=== PATIENT | male | born 1940 | race Caucasian/White ===

== ENCOUNTER → 2016-11-05 | Outpatient (CLI) | payer MEDICARE ==
[~2016-11-05] MED LIST: APIX5TAB PO; ATOR10TA9 PO; CALC625T23 PO; ENAL2.5T PO; HYDR25TA6 PO; METO-93 PO; METO25TA91 PO; MULT-658 PO; OMEG1CAP6 PO; POTA10TA12 PO; TAMS0.4C2 PO
== END | disposition home or self-care (01) ==
LOC: WOUND 11:00
PROVIDERS: ATTEND Physician Assistant
DX: L97.812 Non-pressure chronic ulcer of other part of right lower leg with fat layer exposed (principal); I10 Essential (primary) hypertension; E78.5 Hyperlipidemia, unspecified; I48.2 Chronic atrial fibrillation; E78.00 Pure hypercholesterolemia, unspecified
CPT/HCPCS: G0463; WOU0463